=== PATIENT | male | born 1970 | race Two or more races ===

== ENCOUNTER → 2018-02-07 | Emergency (ER) | payer OTHER ==
[~2018-02-07] VITALS: Ht 188 cm; Wt 156.5 kg
== END | disposition home or self-care (01) ==
LOC: ER 08:21
DX: S50.12XA Contusion of left forearm, initial encounter (principal); R20.0 Anesthesia of skin; W86.1XXA Exposure to industrial wiring, appliances and electrical machinery, initial encounter; Y93.89 Activity, other specified; Y92.69 Other specified industrial and construction area as the place of occurrence of the external cause; Y99.8 Other external cause status

== ENCOUNTER 2018-03-25 10:36 | Emergency (ER) | payer OTHER ==
[~2018-03-25] VITALS: Ht 185.4 cm; Wt 163.3 kg
[2018-03-25] MEDS ORDERED: NORFLEX100MG PO (13:16)
[2018-03-25] MEDS ORDERED: KETO10TA2 PO (13:16)
== END 2018-03-25 14:21 | disposition home or self-care (01) ==
LOC: ER 10:36
DX: S80.02XA Contusion of left knee, initial encounter (principal); W10.8XXA Fall (on) (from) other stairs and steps, initial encounter; Y93.89 Activity, other specified; Y92.69 Other specified industrial and construction area as the place of occurrence of the external cause; Y99.8 Other external cause status

== ENCOUNTER 2022-09-13 09:55 | Emergency (ER) | payer OTHER ==
[~2022-09-13] VITALS: Ht 188 cm; Wt 152.9 kg
[~2022-09-13 09:55] MED LIST: KETO10TA2 PO; NORFLEX100MG PO
[2022-09-13] MEDS ORDERED: ATORVASTATIN CA10 MG (10:14)
[2022-09-13] MEDS ORDERED: GLUMETZA500 MG (10:14)
[2022-09-13] MEDS ORDERED: GLIPIZIDE ER10 MG (10:15)
[2022-09-13] MEDS ORDERED: COZAAR100 MG (10:15)
[2022-09-13] MEDS ORDERED: SYMBICORT 16010.2 GM (10:15)
[2022-09-13] MEDS ORDERED: TOPROL XL25 M1 (10:15)
== END 2022-09-13 16:17 ==
LOC: ER 09:55
DX: E11.65 Type 2 diabetes mellitus with hyperglycemia (principal); I10 Essential (primary) hypertension; J45.909 Unspecified asthma, uncomplicated; Z79.84 Long term (current) use of oral hypoglycemic drugs; R42 Dizziness and giddiness; Z88.0 Allergy status to penicillin

== ENCOUNTER 2023-04-24 07:16 | Emergency (ER) | payer OTHER ==
[~2023-04-24] VITALS: Ht 188 cm; Wt 163.3 kg
[~2023-04-24 07:16] MED LIST changes: +ATORVASTATIN CA10 MG; +COZAAR100 MG; +GLIPIZIDE ER10 MG; +GLUMETZA500 MG; +SYMBICORT 16010.2 GM; +TOPROL XL25 M1
[2023-04-24] MEDS ORDERED: LANTUS SOL100 UNIT/1 SQ (07:46)
[2023-04-24] MEDS ORDERED: GLUMETZA1000 MG PO (07:46)
== END 2023-04-24 10:39 | disposition home or self-care (01) ==
LOC: ER 07:16
DX: R53.1 Weakness (principal); R73.9 Hyperglycemia, unspecified; R42 Dizziness and giddiness; Z20.822 Contact with and (suspected) exposure to COVID-19; Z88.0 Allergy status to penicillin